=== PATIENT | male | born 1930 | race Caucasian/White ===

== ENCOUNTER → 2017-05-17 | Outpatient (CLI) | payer MEDICARE ==
[2017-05-17 18:21] LABS: BASOPHILS % (AUTO) 0 % (0-10); EOSINOPHILS # (AUTO) 0.4 10^3/uL (0.0-0.3); EOSINOPHILS % (AUTO) 4 % (0-10); HEMATOCRIT 33 % (40-54); HEMOGLOBIN 12.3 G/DL (13.3-17.7); LYMPHOCYTES # (AUTO) 3.7 X 10^3 (1.0-4.0); LYMPHOCYTES % (AUTO) 36 % (12-44); MEAN CORPUSCULAR HEMOGLOBIN 30 PG (25-34); MEAN CORPUSCULAR HGB CONC 38 G/DL (32-36); MEAN CORPUSCULAR VOLUME 80 FL (80-99); MONOCYTES # (AUTO) 0.7 X 10^3 (0.0-1.0); MONOCYTES % (AUTO) 7 % (0-12); NEUTROPHILS # (AUTO) 5.3 X 10^3 (1.8-7.8); NEUTROPHILS % (AUTO) 53 % (42-75); PLATELET COUNT 225 10^3/uL (130-400); RED BLOOD COUNT 4.09 10^6/uL (4.35-5.85); RED CELL DISTRIBUTION WIDTH 13.8 % (10.0-14.5)
[2017-05-17 18:44] LABS: ERYTHROCYTE SEDIMENTATION RATE 30 MM/HR (0-30)
== END ==
LOC: LAB 17:57
PROVIDERS: ATTEND Nurse Practitioner Family
DX: R51 Headache (principal)
CPT/HCPCS: 36415; 85025; 85652; 86141

== ENCOUNTER → 2018-08-14 | Outpatient (CLI) | payer MEDICARE ==
--- NOTE | 2018-08-14 16:05 | Diagnostic Imaging Report ---
PROCEDURE: CT abdomen and pelvis without contrast. TECHNIQUE: Multiple contiguous axial images were obtained through the abdomen and pelvis without the use of intravenous contrast. Auto Exposure Controls were utilized during the CT exam to meet ALARA standards for radiation dose reduction. INDICATION: Gross hematuria. COMPARISON: Correlation is made with prior CT from 02/20/2014. FINDINGS: Imaging through the lung bases does show some interstitial fibrotic changes in the bilateral lower lobes. No discrete liver mass is identified. The gallbladder is unremarkable. No biliary duct dilatation is seen. The pancreas and spleen are unremarkable. No adrenal mass is detected. The right kidney is unremarkable. Left kidney does contain a cortical low density in the upper pole measuring 3.4 cm and most suggestive of a cyst. No calculi or hydronephrosis is seen. No ureteral calculi or bladder calculi are seen. Aorta and iliac vessels are heavily calcified but nonaneurysmal. The small and large bowel loops are normal in caliber. There is diverticulosis of the sigmoid but no evidence of acute diverticulitis. There is no ascites. No central retroperitoneal or mesenteric lymphadenopathy is seen. No definite iliac or inguinal lymphadenopathy is seen. 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 Bony structures are non-acute. IMPRESSION: 1. Essentially unremarkable noncontrast CT of the abdomen and pelvis. There is a left renal cyst and uncomplicated sigmoid diverticulosis. No acute feature is identified. No urinary tract calculi, hydronephrosis or solid lesion is detected. Dictated by: Dictated on workstation # [id number]
== END ==
LOC: RAD 15:02
PROVIDERS: ATTEND Urology
DX: K57.30 Diverticulosis of large intestine without perforation or abscess without bleeding (principal); N28.1 Cyst of kidney, acquired; R31.0 Gross hematuria
CPT/HCPCS: 74176

== ENCOUNTER → 2019-10-28 | Outpatient (CLI) | payer MEDICARE | LOC: CARD 13:42 | PROVIDERS: ATTEND Internal Medicine Cardiovascular Disease | DX: I08.1 Rheumatic disorders of both mitral and tricuspid valves (principal); I25.10 Atherosclerotic heart disease of native coronary artery without angina pectoris; E78.2 Mixed hyperlipidemia; I10 Essential (primary) hypertension; E11.9 Type 2 diabetes mellitus without complications | CPT/HCPCS: 93306 ==

== ENCOUNTER → 2019-11-05 | Outpatient (CLI) | payer MEDICARE ==
[~2019-11-05] VITALS: Ht 182 cm; Wt 88.0 kg
[~2019-11-05] MED LIST: CATHETER FLUSH 10 ML SYR IV PRN; REGADENOSON 0.4 MG/5 ML SYR (LEXISCAN) IV ONE
[2019-11-05 14:15] VITALS: BP 149/83
--- NOTE | 2019-11-05 14:15 | Cardiology Stress Test Report ---
Stress Test Report Date of Procedure/Referring: Date of Procedure: Nov 05, 2019 PCP Lan Dickinson MD Admitting Physician Doretha Wilson MD Indications: CHF Baseline Heart Rate: 71 Baseline Blood Pressure: Blood Pressure Systolic: 149 Blood Pressure Diastolic: 83 Baseline EKG: Baseline EKG: Normal sinus rhythm, left bundle branch block Summary/Conclusion After explaining the procedure to the patient, he signed a consent and then brought to the stress nuclear laboratory. Patient received 0.4 mg Lexiscan for stress test, ECG, heart rate and blood pressure were monitored continuously. Resting and stress dose of radio tracer were injected, imaging was acquired and reviewed in short axis, horizontal long axis and vertical long axis views. TID 1 SSS 6 SDS 4 EF 31% Conclusion 1. Patient tolerated Lexiscan well 2. Baseline left bundle branch block persisted throughout test 3. Reversible ischemia involving the basal to mid inferior wall and inferolateral wall 4. Dilated left ventricle with diffuse left ventricular hypokinesia, EF 31 percent LAN DICKINSON MD Nov 05, 2019 14:15
== END ==
LOC: CARD 07:39
PROVIDERS: ATTEND Internal Medicine Cardiovascular Disease
DX: E78.2 Mixed hyperlipidemia (principal); I10 Essential (primary) hypertension; E11.9 Type 2 diabetes mellitus without complications; I25.10 Atherosclerotic heart disease of native coronary artery without angina pectoris; I44.7 Left bundle-branch block, unspecified
CPT/HCPCS: 78452; 93017; A9502

== ENCOUNTER → 2019-11-17 | Outpatient (CLI) | payer MEDICARE | LOC: LABNPT 06:56 | PROVIDERS: ATTEND Internal Medicine Cardiovascular Disease | DX: Z01.818 Encounter for other preprocedural examination (principal) ==